=== PATIENT | female | born 1980 ===

== ENCOUNTER 2024-05-09 06:16 | Day surgery (SDC) | payer OTHER, SELFPAY | END 2024-05-09 12:33 | disposition home or self-care (01) | LOC: GI 06:16 | PROVIDERS: ATTENDING PHYSICIAN Internal Medicine Gastroenterology | DX: R19.4 Change in bowel habit (principal); R14.0 Abdominal distension (gaseous); R76.8 Other specified abnormal immunological findings in serum; K31.7 Polyp of stomach and duodenum | CPT/HCPCS: 43239; 45378; 88305 ==